=== PATIENT | female | born 1975 | race Caucasian/White ===

== ENCOUNTER 2018-03-13 14:22 | Day surgery (SDC) | payer BC ==
[2018-03-13] MEDS ORDERED: FENTAnyl 50 MCG/ML VIAL (16:17)
[2018-03-13] MEDS ORDERED: PROPOFOL 20 ML (16:17)
[2018-03-13] MEDS ORDERED: MIDAZOLAM 1 MG/ML 2 ML INJ (16:17)
== END 2018-03-13 17:10 | disposition home or self-care (01) ==
LOC: GIL 14:22
DX: K64.8 Other hemorrhoids (principal); E66.9 Obesity, unspecified; Z68.39 Body mass index [BMI] 39.0-39.9, adult
CPT/HCPCS: 45378; 84703